=== PATIENT | male | born 1990 | race Caucasian/White ===

== ENCOUNTER 2018-04-08 20:23 | Emergency (ER) | payer OTHER ==
[~2018-04-08] VITALS: Ht 172.7 cm; Wt 83.9 kg
[2018-04-08 20:29] VITALS: Ht 172.7 cm; Wt 83.9 kg
[2018-04-08 21:15] LABS: CALCIUM 8.4 mg/dL (8.5-10.1); CARBON DIOXIDE 24.1 mmol/L (21-32); CHLORIDE SERUM 104 mmol/L (98-107); CREATININE SERUM 0.8 mg/dL (0.7-1.3); GFR1 > 60 mL/min; GLUCOSE SERUM 111 mg/dL (74-106); POTASSIUM SERUM 3.5 mmol/L (3.5-5.1); SODIUM SERUM 139 mmol/L (136-145)
[2018-04-08 21:17] LABS: BASOPHIL % 0.5 % (0-2); PLATELET COUNT 228 x10^3mcL (130-400); RED CELL DISTRIBUTION WIDTH 13.6 % (11.5-14.5)
[2018-04-08 21:20] LABS: ALBUMIN 4.3 g/dL (3.4-5.0); ALKALINE PHOSPHATASE 111 U/L (46-116); ALT/SGPT 44 U/L (16-63); AST/SGOT 29 U/L (15-37); BILIRUBIN TOTAL 0.4 mg/dL (0.20-1.00)
[2018-04-08 21:22] LABS: TOTAL PROTEIN, SERUM 8.4 g/dL (6.4-8.2)
[2018-04-08 22:08] VITALS: BP 114/86
== END 2018-04-08 22:08 | disposition home or self-care (01) ==
LOC: ED 20:23
PROVIDERS: Emergency Medicine
DX: S22.32XA Fracture of one rib, left side, initial encounter for closed fracture (principal); Y92.413 State road as the place of occurrence of the external cause; S09.8XXA Other specified injuries of head, initial encounter; J45.909 Unspecified asthma, uncomplicated; V48.5XXA Car driver injured in noncollision transport accident in traffic accident, initial encounter; Y93.I9 Activity, other involving external motion; Y99.8 Other external cause status; S20.312A Abrasion of left front wall of thorax, initial encounter
CPT/HCPCS: 36415; 90715; G0480; J7030; Q0092